=== PATIENT | female | born 1965 | race Two or more races ===

== ENCOUNTER 2020-08-16 11:50 | Emergency (ER) | payer OTHER ==
[~2020-08-16] VITALS: Ht 154.9 cm; Wt 62.6 kg
[2020-08-16] MEDS ORDERED: METOCLOPRAMIDE10 MG PO (16:21)
[2020-08-16] MEDS ORDERED: MOTION RELIEF25 MG PO (16:21)
== END 2020-08-16 17:41 | disposition home or self-care (01) ==
LOC: ER 11:50
DX: H81.13 Benign paroxysmal vertigo, bilateral (principal); K29.70 Gastritis, unspecified, without bleeding; Z11.52 Encounter for screening for COVID-19